=== PATIENT | male | born 1975 | race Two or more races ===

== ENCOUNTER 2017-01-19 09:10 | Inpatient (IN) | payer OTHER ==
[2017-01-19] VITALS (14 sets, daily range): BP systolic 117–139; BP diastolic 67–83
[~2017-01-19] VITALS: Ht 177.8 cm; Wt 94.8 kg
[~2017-01-19 09:10] MED LIST: Pantoprazole Inj IVP ONE; TRAMADOL HCL50 MG ORAL; Vancomycin 1gm/D5W 275ml IVPB ONE
[2017-01-19] MEDS ORDERED: Bupivacaine w/Epi 0.5% 30ml Vial INJ ONE ×2 (11:38→13:05)
[2017-01-19] MEDS ORDERED: Bacitracin Oint 15gm Tube TOPIC ONE (11:38)
[2017-01-19] MEDS ORDERED: Thrombin 5000 units TOPIC ONE (11:38)
[2017-01-19] MEDS ORDERED: Gelfoam Absorbable 1gm powder pkt TOPIC ONE (11:39)
[2017-01-19] MEDS ORDERED: Thrombin 5000 units spray kit TOPIC ONE (11:39)
[2017-01-19] MEDS ORDERED: Bacitracin 50000 Units Vial ONE (11:39)
--- NOTE | 2017-01-19 11:50 | Pre-Procedure Note/Attestation ---
Pre-Procedure Note/Attestation Complete Prior to Procedure Planned Procedure: bilateral Procedure Narrative: Posterior thoracolumbar fusion T12 to L2 with pedicle screw system, posterolateral arthrodesis, with allograft, autograft and iliac crest bone marrow aspiration Attestation I attest that I discussed the nature of the procedure; its benefits; risks and complications; and alternatives (and the risks and benefits of such alternatives ), prior to the procedure, with the patient (or the patient's legal warehouse representative). I attest that, if there was a reasonable possibility of needing a blood transfusion, the patient (or the patient's legal warehouse representative) was given the [facility] standardized written summary, pursuant to the [place] Blood Safety Act ([place] Health and Safety Code # 1645, as amended). I attest that I re-evaluated the patient just prior to the surgery and that there has been no change in the patient's H&P, except as documented below: SANJEEV ELIZABETH January 19, 2017 11:50
[2017-01-19] MEDS ORDERED: NS Irrig 2000ml IRRIG ONE (12:00)
[2017-01-19] MEDS ORDERED: Neostigmine 1mg/ml 10ml Inj ONE (12:00)
[2017-01-19] MEDS ORDERED: Zemuron 50mg/5ml Inj IV ONE (12:00)
[2017-01-19] MEDS ORDERED: Midazolam 2mg/2ml Inj ONE (12:00)
[2017-01-19] MEDS ORDERED: Succinylcholine 20mg/ml 10ml vial ONE (12:00)
[2017-01-19] MEDS ORDERED: LR 1000ml ONE ×2 (12:00)
[2017-01-19] MEDS ORDERED: fentaNYL 250mcg/5ml ONE (12:00)
[2017-01-19] MEDS ORDERED: Sterile Water Irrig 1000ml IRRIG ONE (12:00)
[2017-01-19] MEDS ORDERED: Morphine Sulfate 10mg/ml Inj ONE (12:00)
[2017-01-19] MEDS ORDERED: Ketamine 500mg Inj ONE (12:00)
[2017-01-19] MEDS ORDERED: Ketorolac 30mg Inj ONE (12:00)
[2017-01-19] MEDS ORDERED: Glycopyrrolate 0.2mg/ml 1ml Vial ONE (12:00)
[2017-01-19] MEDS ORDERED: Propofol 10mg/ml 100ml btl IV ONE (12:00)
--- NOTE | 2017-01-19 13:33 | Anethesia Preoperative Eval ---
Anesthesia Pre-op PMH/ROS General Date of Evaluation: January 19, 2017 Time of Evaluation: 11:42 Anesthesiologist: Kaila ASA Score: ASA 2 Mallampati Score Class I : Soft palate, uvula, fauces, pillars visible Class II: Soft palate, uvula, fauces visible Class III: Soft palate, base of uvula visible Class IV: Only hard plate visible Mallampati Classification: Class II Surgeon: Charles Diagnosis: Lumbar radikulopathy Surgical Procedure: T12-L2 posterior lamijnotomy with decompression and interbody fusion Anesthesia History: none Family History: no anesthesia problems Allergies: Coded Allergies: No Known Allergies (Unverified , 01/17/17) Medications: see eMAR Past Medical History Cardiovascular: Denies: CAD, HTN, [place], arrhythmia, other, valve dz Pulmonary: Denies: COPD, [place]ST[place], asthma, other Gastrointestinal/Genitourinary: Reports: GERD - mild, Denies: CRI, ESRD, other Neurologic/Psychiatric: Reports: other - chronic pain Endocrine: Denies: DM, hypothyroidism, other, steroids HEENT: Denies: [place] (L), [place] (R), cataract (L), cataract (R), glaucoma, other Hematology/Immune: Denies: DVT, anemia, bleeding disorder, other Musculoskeletal/Integumentary: Denies: DDD, DJD, OA, RA, edema, other Other: other - overweight PMH Narrative: as above PSxH Narrative: dental Sx. Anesthesia Pre-op Phys. Exam Physician Exam Last Vital Signs Date Time Temp Pulse Resp B/P Pulse Ox O2 Delivery O2 Flow Rate FiO2 01/19/17 09:30 98.7 81 18 139/83 97 Room Air Constitutional: NAD Neurologic: CN 2-12 intact Cardiovascular: RRR, no M/R/G Respiratory: CTA Gastrointestinal: S/NT/ND Airway Exam Mallampati Score: Class II MO: full Neck: flexible ROM: full Teeth: intact Dentures: no lower, no upper Anesthesia Pre-op A/P Labs see chart Studies Pre-op Studies: EKG - NSR Risk Assessment & Plan Assessment: ASA 2 Plan: GA with ETT prone position neuromonitoring Status Change Before Surgery: No Pre-Antibiotics Drug: as scheduled Given Within 1 Hr of Incision: Yes Time Given: 12:48 ALEXIS CHRISTIANSEN M.D. January 19, 2017 13:33
[2017-01-19] MEDS ORDERED: LR 1000ml 1,000 ML IVLG SCH (15:00)
[2017-01-19] MEDS ORDERED: Ketorolac 30mg Inj IV PRN (15:00)
[2017-01-19] MEDS ORDERED: Hydromorphone 0.5mg/0.5ml inj IVP PRN (15:00)
[2017-01-19] MEDS ORDERED: Meperidine 25mg/0.5ml Inj IV PRN (15:00)
[2017-01-19] MEDS ORDERED: DiphenhydrAMINE 50mg/ml Inj IVP PRN ×2 (15:00→15:15)
[2017-01-19] MEDS ORDERED: Midazolam 2mg/2ml Inj IVP PRN (15:00)
[2017-01-19] MEDS ORDERED: Rate Change PCA 1 Each MISC PRN (15:15)
[2017-01-19] MEDS ORDERED: LORazepam 1mg tab ORAL PRN (15:15)
[2017-01-19] MEDS ORDERED: Naloxone 0.4mg/ml Inj IVP PRN (15:15)
--- NOTE | 2017-01-19 16:45 | Diagnostic Imaging Report ---
Indications: Low back pain and paresthesias, lumbar fusion Technique: Above procedure including fluoroscopy performed by Dr. Soto. Portable intraoperative PA and lateral spot film images performed. Findings: Comparison: None Initial image demonstrates moderate compression fracture of L1 vertebral body with bone cement, surgical implement overlying the posterior elements at the L1 and L2 levels. Subsequent images demonstrate placement of bilateral pedicle screws from T12-L2, bridged by longitudinal rods bilaterally. IMPRESSION: Intraoperative changes as described L1 vertebral body compression fracture, previous vertebral augmentation
--- NOTE | 2017-01-19 17:07 | Immediate Post-Op Evaluation ---
Immediate Post-Op Evalulation Immediate Post-Op Evalulation Procedure: Posterior T12-L2 laminotomy with decompressiobn and interbody fusion Date of Evaluation: January 19, 2017 Time of Evaluation: 17:06 IV Fluids: 1600 Blood Products: none Estimated Blood Loss: 300 Urinary Output: 350 Blood Pressure Systolic: 117 Blood Pressure Diastolic: 64 Pulse Rate: 96 Respiratory Rate: 22 O2 Sat by Pulse Oximetry: 99 Temperature (Fahrenheit): 98.4 Pain Score (1-10): 1 Nausea: No Vomiting: No Complications none Patient Status: reacts, patent, extubated, none Hydration Status: adequate ALEXIS CHRISTIANSEN M.D. January 19, 2017 17:07
[2017-01-19] MEDS ORDERED: HYDROmorphone 1mg/ml Carpuject IVP PRN (17:30)
[2017-01-19] MEDS ORDERED: Milk of Magnesia 30ml Ud ORAL PRN (17:30)
[2017-01-19] MEDS ORDERED: Norco 7.5mg/325mg tab ORAL PRN ×2 (17:30)
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
--- NOTE | 2017-01-19 17:56 | General Progress Note ---
Progress Note Progress Note Neurosurgery Post op S/Comfortable O/ Vs nl Arousable moves all extremities HV 20 cc doing well admit LOOM FIXER SANJEEV ELIZABETH January 19, 2017 17:56
[2017-01-19] MEDS: PCA HYDROmorphone 1mg/ml 30 ML IV PRN ×3 (18:00→22:02)
[2017-01-19] MEDS: Docusate 100mg tablet ORAL SCH (21:00)
[2017-01-19] MEDS: 1/2NS w/KCl 20mEq 1000ml 1,000 ML IV SCH (21:46)
[2017-01-19] MEDS: Vancomycin 1 GM in D5W 275 ML IVPB SCH (21:47)
[2017-01-19] MEDS: PCA shift volume MISC SCH (21:58)
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
[2017-01-20] VITALS (7 sets, daily range): BP systolic 111–144; BP diastolic 59–86
[2017-01-20] MEDS: 1/2NS w/KCl 20mEq 1000ml 1,000 ML IV SCH ×3 (06:56→20:23)
[2017-01-20] MEDS: PCA shift volume MISC SCH (07:22)
[2017-01-20 07:23] LABS: BASOPHILS % (AUTO) 0.7 % (0.0-2.0); EOSINOPHILS % (AUTO) 1.8 % (0.0-3.0); LYMPHOCYTES % (AUTO) 16.1 % (20.0-45.0); MEAN CORPUSCULAR HEMOGLOBIN 29.9 PG (27.0-31.0); MEAN CORPUSCULAR HGB CONC 33.6 G/DL (32.0-36.0); MEAN CORPUSCULAR VOLUME 89 FL (80-99); MEAN PLATELET VOLUME 10.9 FL (6.5-10.1); MONOCYTES % (AUTO) 9.9 % (1.0-10.0); NEUTROPHILS % (AUTO) 71.6 % (45.0-75.0); PLATELET COUNT 187 K/UL (150-450); RED BLOOD COUNT 4.77 M/UL (4.70-6.10); WHITE BLOOD COUNT 12.5 K/UL (4.8-10.8)
[2017-01-20 07:30] LABS: ANION GAP 10 (5-15); CALCIUM 8.5 mg/dL (8.6-10.2); CARBON DIOXIDE 28 mEQ/L (20-30); CHLORIDE 100 mEQ/L (98-107); CREATININE 0.8 mg/dL (0.7-1.2); GLOMERULAR FILTRATION RATE > 60 mL/min (>60); HEMOLYSIS 8; POTASSIUM 3.8 mEQ/L (3.4-4.9); SODIUM 138 mEQ/L (135-145)
--- NOTE | 2017-01-20 08:09 | General Progress Note ---
Progress Note Progress Note Neurosurgery POD #1 S/ Incisional pain controlled with SLUBBER HAND, no leg pain O/ VS: HV 160 cc Last 24 Hour Vital Signs Date Time Temp Pulse Resp B/P Pulse Ox O2 Delivery O2 Flow Rate FiO2 01/20/17 04:55 97.7 01/20/17 04:45 98.4 76 18 115/71 97 Nasal Cannula 3.0 01/20/17 04:14 20 01/20/17 03:45 97.7 95 18 122/59 98 Nasal Cannula 3.0 01/20/17 01:45 97.9 76 18 111/62 98 Nasal Cannula 3.0 01/20/17 00:14 20 01/19/17 21:45 97.7 98 18 127/67 96 Nasal Cannula 3.0 01/19/17 20:45 97.9 86 18 130/77 98 Nasal Cannula 3.0 01/19/17 20:14 20 01/19/17 19:45 97.9 82 18 119/73 98 Nasal Cannula 3.0 01/19/17 19:44 20 01/19/17 19:24 20 01/19/17 18:52 20 01/19/17 18:45 98.0 88 21 117/70 100 Nasal Cannula 2.0 01/19/17 18:40 20 01/19/17 18:30 72 21 129/73 100 Nasal Cannula 2.0 01/19/17 18:30 20 01/19/17 18:15 72 21 120/77 100 Nasal Cannula 2.0 01/19/17 18:15 20 01/19/17 18:00 72 21 119/77 100 Nasal Cannula 2.0 01/19/17 18:00 20 01/19/17 17:45 67 21 125/78 100 Simple Mask 10.0 01/19/17 17:30 75 21 123/75 100 Simple Mask 10.0 01/19/17 17:20 84 21 122/80 100 Simple Mask 10.0 01/19/17 17:08 94 21 118/73 100 Simple Mask 10.0 01/19/17 17:07 96 22 99 01/19/17 17:03 99 21 119/69 100 Simple Mask 10.0 01/19/17 16:58 98.5 100 21 121/72 100 Simple Mask 10.0 01/19/17 09:30 98.7 81 18 139/83 97 Room Air On exam, Alert and oriented, pleasant. Lower extremities, Quads and distally 5/5 normal sensation. Labs: Laboratory Tests Test 01/20/17 06:20 White Blood Count 12.5 K/UL (4.8-10.8) H Red Blood Count 4.77 M/UL (4.70-6.10) Hemoglobin 14.3 G/DL (14.2-18.0) Hematocrit 42.5 % (42.0-52.0) Mean Corpuscular Volume 89 FL (80-99) Mean Corpuscular Hemoglobin 29.9 PG (27.0-31.0) Mean Corpuscular Hemoglobin Concent 33.6 G/DL (32.0-36.0) Red Cell Distribution Width 12.0 % (11.6-14.8) Platelet Count 187 K/UL (150-450) Mean Platelet Volume 10.9 FL (6.5-10.1) H Neutrophils (%) (Auto) 71.6 % (45.0-75.0) Lymphocytes (%) (Auto) 16.1 % (20.0-45.0) L Monocytes (%) (Auto) 9.9 % (1.0-10.0) Eosinophils (%) (Auto) 1.8 % (0.0-3.0) Basophils (%) (Auto) 0.7 % (0.0-2.0) Sodium Level 138 mEQ/L (135-145) Potassium Level 3.8 mEQ/L (3.4-4.9) Chloride Level 100 mEQ/L (98-107) Carbon Dioxide Level 28 mEQ/L (20-30) Anion Gap 10 (5-15) Blood Urea Nitrogen 9 mg/dL (7-23) Creatinine 0.8 mg/dL (0.7-1.2) Estimat Glomerular Filtration Rate > 60 mL/min (>60) Glucose Level 109 mg/dL (74-106) H Calcium Level 8.5 mg/dL (8.6-10.2) L doing well wean off SLUBBER HAND bowel care PT postop CT lumbar brace with extension. d/c planning SANJEEV ELIZABETH January 20, 2017 08:09
[2017-01-20] MEDS: Docusate 100mg tablet ORAL SCH (09:00)
[2017-01-20] MEDS: Vancomycin 1 GM in D5W 275 ML IVPB SCH (09:27)
--- NOTE | 2017-01-20 12:44 | Diagnostic Imaging Report ---
Indication: History of vertebral fracture. Postop fusion. Technique: Continuous helical transaxial imaging of the lumbar spine was obtained from the lung bases to the pubic symphysis. No IV contrast was administered. Coronal 2-D reformats were also obtained. Study obtained in a Siemens sensation [address] Total Dose length Product (DLP): [address] Dose Index Volume (CTDIvol): 20 mGy Comparison: None Findings: There is a moderate compression fracture deformity of the L1 vertebra with minimal retropulsion of the posterior superior aspect of the vertebra. Patient is status post 3 level fusion with bilateral pedicle screws and fusion rods T12, L1 and L2. Methylmethacrylate cement noted about the right L1 screw. Hardware alignment and position appear satisfactory. There is no obvious hematoma or other complications identified. No other fractures are identified. Impression: Status post T12 to L2 posterior instrumented fusion. Partial right kyphoplasty at L1 vertebra, which is moderately compressed. The CT scanner at [facility] is accredited by the [employer] and the scans are performed using protocols designed to limit radiation exposure to as low as reasonably achievable to attain images of sufficient resolution adequate for diagnostic evaluation.
[2017-01-20] MEDS ORDERED: Norco 7.5mg/325mg tab ORAL PRN (15:00)
[2017-01-20] MEDS: Norco 7.5mg/325mg tab ORAL PRN (15:07)
[2017-01-20] MEDS: HYDROmorphone 1mg/ml Carpuject IVP PRN ×2 (16:57→20:23)
[2017-01-20] MEDS: Cyclobenzaprine 10mg Tab ORAL PRN (17:30)
[2017-01-20] MEDS: Docusate 100mg cap ORAL SCH (18:15)
--- NOTE | 2017-01-20 19:23 | General Progress Note ---
Assessment/Plan Status Narrative s/p spine surgery pt ot douin well Subjective Date patient seen: January 20, 2017 Time patient seen: 19:22 Constitutional: Reports: no symptoms HEENT: Reports: no symptoms Allergies: Coded Allergies: No Known Allergies (Unverified , 01/17/17) Subjective some cough Objective Last 24 Hour Vital Signs Date Time Temp Pulse Resp B/P Pulse Ox O2 Delivery O2 Flow Rate FiO2 01/20/17 17:27 98.2 01/20/17 17:27 98.2 01/20/17 16:06 98.2 01/20/17 16:00 98.2 101 20 144/86 96 Room Air 01/20/17 12:11 97.7 01/20/17 12:11 20 01/20/17 12:00 99.0 85 19 129/74 94 Room Air 01/20/17 08:00 18 01/20/17 08:00 100.0 95 20 144/82 97 Room Air 01/20/17 04:45 98.4 76 18 115/71 97 Nasal Cannula 3.0 01/20/17 04:14 20 01/20/17 03:45 97.7 95 18 122/59 98 Nasal Cannula 3.0 01/20/17 01:45 97.9 76 18 111/62 98 Nasal Cannula 3.0 01/20/17 00:14 20 01/19/17 21:45 97.7 98 18 127/67 96 Nasal Cannula 3.0 01/19/17 20:45 97.9 86 18 130/77 98 Nasal Cannula 3.0 01/19/17 20:14 20 01/19/17 19:45 97.9 82 18 119/73 98 Nasal Cannula 3.0 01/19/17 19:44 20 01/19/17 19:24 20 Intake and Output 01/19/17 01/20/17 19:00 07:00 Intake Total 1500 ml 1215.0 ml Output Total 650 ml 760 ml Balance 850 ml 455.0 ml Intake Oral 240 ml IV Total 1500 ml 975.0 ml Output Urine Total 350 ml 600 ml Drainage Total 160 ml Estimated Blood Loss 300 ml # Voids 1 Laboratory Tests 01/20/17 06:20: White Blood Count 12.5H, Red Blood Count 4.77, Hemoglobin 14.3, Hematocrit 42.5 , Mean Corpuscular Volume 89, Mean Corpuscular Hemoglobin 29.9, Mean Corpuscular Hemoglobin Concent 33.6, Red Cell Distribution Width 12.0, Platelet Count 187, Mean Platelet Volume 10.9H, Neutrophils (%) (Auto) 71.6, Lymphocytes (%) (Auto) 16.1L, Monocytes (%) (Auto) 9.9, Eosinophils (%) (Auto) 1.8, Basophils (%) (Auto) 0.7, Sodium Level 138, Potassium Level 3.8, Chloride Level 100, Carbon Dioxide Level 28, Anion Gap 10, Blood Urea Nitrogen 9, Creatinine 0.8, Estimat Glomerular Filtration Rate > 60, Glucose Level 109H, Calcium Level 8.5L Height (Feet): 5 Height (Inches): 10.00 Weight (Pounds): 209 General Appearance: WD/WN Neck: non-tender Cardiovascular: normal rate, regular rhythm, no JVD Respiratory/Chest: lungs clear Abdomen: soft LEONID DIANE January 20, 2017 19:23
[2017-01-21] VITALS: BP 124/75
[2017-01-21 04:00] VITALS: BP 129/80
[2017-01-21] MEDS: HYDROmorphone 1mg/ml Carpuject IVP PRN ×2 (04:48→07:01)
[2017-01-21] MEDS: Docusate 100mg cap ORAL SCH ×2 (07:01→16:57)
[2017-01-21] MEDS: 1/2NS w/KCl 20mEq 1000ml 1,000 ML IV SCH (07:24)
[2017-01-21 08:00] VITALS: BP 137/77
[2017-01-21] MEDS: Norco 7.5mg/325mg tab ORAL PRN ×2 (08:14→08:17)
[2017-01-21] MEDS ORDERED: traMADol 50mg tab ORAL PRN (08:30)
--- NOTE | 2017-01-21 09:52 | 48 Hour Post Anesthesia Eval ---
Post Anesthesia Evaluation Procedure: Posterior T12-L2 laminotomy with decompressiobn and interbody fusion Date of Evaluation: January 21, 2017 Time of Evaluation: 09:51 Blood Pressure Systolic: 128 0: 72 Pulse Rate: 74 Respiratory Rate: 20 Temperature (Fahrenheit): 97.3 O2 Sat by Pulse Oximetry: 98 Airway: patent Nausea: No Vomiting: No Pain Intensity: 3 Hydration Status: adequate Cardiopulmonary Status: stable Mental Status/LOC: patient returned to baseline Follow-up Care/Observations: n/a Post-Anesthesia Complications: none Follow-up care needed: N/A ALEXIS CHRISTIANSEN M.D. January 21, 2017 09:52
--- NOTE | 2017-01-21 10:39 | General Progress Note ---
Progress Note Progress Note Neurosurgery S/ Pain better controlled with Percocet. Ambulated with improvement in posture. O/ Vs: Last 24 Hour Vital Signs Date Time Temp Pulse Resp B/P Pulse Ox O2 Delivery O2 Flow Rate FiO2 01/21/17 09:52 74 20 98 01/21/17 08:00 99.0 94 20 137/77 98 Nasal Cannula 3.0 01/21/17 07:31 98.2 01/21/17 04:00 98.2 82 20 129/80 98 Room Air 01/21/17 00:00 98.1 82 20 124/75 97 Room Air 01/20/17 20:00 98.6 102 20 136/76 97 Room Air 01/20/17 17:27 98.2 01/20/17 16:06 98.2 01/20/17 16:00 98.2 101 20 144/86 96 Room Air 01/20/17 12:11 97.7 01/20/17 12:11 20 01/20/17 12:00 99.0 85 19 129/74 94 Room Air HV 30 cc serosang Alert and oriented. Pt's at bedside Drain removed w/o complication dressing changed wound clean dry and intact motor exam 01/20 Imaging: I reviewed the post op thoracolumbar CT. Pedicle screws and hardware are in excellent position with improvement of the thoracolumbar alignment. doing well D/c planning d/c instructions reviewed with pt, his and nursing staff SANJEEV ELIZABETH January 21, 2017 10:39
--- NOTE | 2017-01-21 11:50 | Diagnostic Imaging Report ---
Indication: Cough Comparison: None A single view chest radiograph was obtained. Findings: Cardiomediastinal appearance is within normal limits for age. Pulmonary vascularity is appropriate. The diaphragmatic contour is smooth and costophrenic angles are sharp. No pleural effusions are identified. The bones are unremarkable. Impression: No acute findings
[2017-01-21 12:00] VITALS: BP 133/75
--- NOTE | 2017-01-21 13:43 | General Progress Note ---
Assessment/Plan Status Narrative s./p complex spine surgtery doing well no fevernochills Assessment/Plan pt ot ambulate doing well dc planning fo rtommorrow. Subjective Date patient seen: January 21, 2017 Time patient seen: 13:43 Constitutional: Reports: no symptoms HEENT: Reports: no symptoms Cardiovascular: Reports: no symptoms Respiratory: Reports: no symptoms Allergies: Coded Allergies: No Known Allergies (Unverified , 01/17/17) Subjective some cough Objective Last 24 Hour Vital Signs Date Time Temp Pulse Resp B/P Pulse Ox O2 Delivery O2 Flow Rate FiO2 01/21/17 12:45 97.3 01/21/17 12:00 97.9 85 20 133/75 92 Room Air 01/21/17 09:52 74 20 98 01/21/17 09:41 97.3 01/21/17 08:00 99.0 94 20 137/77 98 Nasal Cannula 3.0 01/21/17 07:31 98.2 01/21/17 04:00 98.2 82 20 129/80 98 Room Air 01/21/17 00:00 98.1 82 20 124/75 97 Room Air 01/20/17 20:00 98.6 102 20 136/76 97 Room Air 01/20/17 17:27 98.2 01/20/17 16:06 98.2 01/20/17 16:00 98.2 101 20 144/86 96 Room Air Intake and Output 01/20/17 01/21/17 19:00 07:00 Intake Total 1200 ml 1300 ml Output Total 630 ml 730 ml Balance 570 ml 570 ml Intake Oral 200 ml 300 ml IV Total 1000 ml 1000 ml Output Urine Total 550 ml 700 ml Drainage Total 80 ml 30 ml # Voids 2 Height (Feet): 5 Height (Inches): 10.00 Weight (Pounds): 209 General Appearance: WD/WN Neck: non-tender Cardiovascular: normal rate, regular rhythm Respiratory/Chest: lungs clear LEONID DIANE January 21, 2017 13:43
[2017-01-21] MEDS ORDERED: NS 550ML IV ONE (15:33)
[2017-01-21] MEDS ORDERED: Tubing IV Secondary IV ONE (15:33)
[2017-01-21 16:00] VITALS: BP 123/76
[2017-01-21] MEDS: Cyclobenzaprine 10mg Tab ORAL PRN (18:36)
[2017-01-21 20:00] VITALS: BP 119/69
[2017-01-22] VITALS: BP 111/74
[2017-01-22 04:00] VITALS: BP 134/76
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
[2017-01-22] MEDS: Docusate 100mg cap ORAL SCH (05:23)
[2017-01-22 08:00] VITALS: BP 133/86
[2017-01-22] MEDS: HYDROmorphone 1mg/ml Carpuject IVP PRN (10:28)
[2017-01-22] MEDS ORDERED: PERCOCET 10-321 EACH ORAL (11:08)
[2017-01-22] MEDS ORDERED: CYCLOBENZAPRINE10 MG ORAL (11:10)
[2017-01-22] MEDS ORDERED: COLACE100 MG ORAL (11:11)
[2017-01-22] MEDS ORDERED: TRIPLE ANTIBIO1 EAC1 TP (11:13)
[2017-01-22] MEDS ORDERED: MIRALAX17 G2 ORAL (11:14)
== END 2017-01-22 12:00 | disposition home or self-care (01) | DRG 460 ==
LOC: SDSOVERFLO 09:10 → 3E 19:27
DX: M54.15 Radiculopathy, thoracolumbar region (principal); M40.295 Other kyphosis, thoracolumbar region; M43.8X5 Other specified deforming dorsopathies, thoracolumbar region; S32.011S Stable burst fracture of first lumbar vertebra, sequela; V89.2XXS Person injured in unspecified motor-vehicle accident, traffic, sequela
CPT/HCPCS: 36415; 71010; 72020; 72131; 76001; 80048; 85025; 86850; 86900; 86901; 87081; 94003; 94150; J2250; J2405; J2710